=== PATIENT | male | born 1955 | race Caucasian/White ===

== ENCOUNTER 2018-10-25 11:34 | Emergency (ER) | payer MEDICARE, BC ==
[~2018-10-25 11:34] MED LIST: Ondansetron 4 MG/2 ML SDV ONE
[2018-10-25] MEDS ORDERED: Aspirin 81 MG Tab.Chew PO ONE (11:43)
[2018-10-25] MEDS ORDERED: Sodium Chloride 0.9% 1,000 ML IV ONE (11:44)
[2018-10-25] MEDS ORDERED: Ondansetron 4 MG/2 ML SDV IVPUSH STA (11:45)
[2018-10-25] MEDS: Nitroglycerin 0.4 MG Tab.SL SL PRN ×3 (11:48→12:05)
[2018-10-25 12:10] LABS: CHLORIDE,CL 103 mEq/L (98-106); SODIUM,NA 140 mEq/L (136-145)
[2018-10-25] MEDS ORDERED: Iopamidol 755 Mg/ML 100 ML Bottle IVPUSH ONE (12:19)
--- NOTE | 2018-10-25 12:35 | EDM.PDOC ---
ED HPI GENERAL MEDICAL PROBLEM - General Chief Complaint: General Stated Complaint: lightheaded Time Seen by Provider: 10/25/18 11:34 Source of Information: Reports: Patient History Limitations: Reports: No Limitations - History of Present Illness INITIAL COMMENTS - FREE TEXT/NARRATIVE: This patient is a 62 year old male that presents to the ER. Patient reports that he was at home and was doing laundry. He reports that when he bent down that he became lightheaded and passed out to the floor. He reports that his girlfriend found him and called 911. Patient reports his girlfriend was there at the house and it was brief him passing out. Patient reports that he does have chest tightness in center of the chest. Patient reports that he also has more shortness of breath than usual. He reports he has nausea. Patient arrives diaphoretic. Patient reports he has a history of asthma and COPD. Patient also has history of previous alcohol, none lately per patient, HTN, Diabetic. Nonsmoker. Onset: Today Onset Date: 10/25/18 Onset Time: 11:00 Quality: Reports: Other ("tightness") Severity: Mild Improves with: Reports: None Worsens with: Reports: None Associated Symptoms: Reports: Chest Pain, Diaphoresis, Nausea/Vomiting, Shortness of Breath, Syncope, Weakness (generally). Denies: Confusion, Cough, cough w sputum, Fever/Chills, Headaches, Loss of Appetite, Malaise, Rash, Seizure Chest Pain Score (Numeric/FACES): 1 - Related Data Allergies Allergy/AdvReac Type Severity Reaction Status Date / Time No Known Allergies Allergy Verified 10/25/18 11:52 Home Meds: Home Meds Atenolol 25 mg PO DAILY 01/17/14 [History] Benazepril/Hydrochlorothiazide [Benazepril-HCTZ 20-12.5 MG] 1 tab PO DAILY 01/17 [History] Levothyroxine Sodium [Synthroid] 125 mcg PO DAILY 01/17/14 [History] metFORMIN HCl [Metformin HCl ER] 1,000 mg PO BID 01/17/14 [History] Acetaminophen/HYDROcodone [HYDROcodone-Acetaminophen 5-500] 1 mg PO Q4H PRN [History] Gabapentin 300 mg PO BID 06/03/14 [History] Cyanocobalamin (Vitamin B12) [Cyanocobalamin] 1,000 mcg IM Q30D 08/18/14 [ History] Ibuprofen [Advil] 200 mg PO Q6H PRN 08/18/14 [History] Insuln Asp Prot/Insulin Aspart [NovoLOG Mix 70-30] 40 units SQ BEDTIME 10/25/18 [History] Insuln Asp Prot/Insulin Aspart [NovoLOG Mix 70-30] 80 units SQ DAILY 10/25/18 [ History] Tamsulosin HCl [Flomax] 0.4 mg PO BEDTIME 10/25/18 [History] Past Medical History Cardiovascular History: Reports: Heart Failure, Hypertension Respiratory History: Reports: Asthma, COPD, Sleep Apnea Other Respiratory History: WEARS A C[facility]PAP AT [facility] Musculoskeletal History: Reports: Back Pain, Chronic Endocrine/Metabolic History: Reports: Diabetes, Type II, Hypothyroidism, Obesity /BMI 30+ Hematologic History: Reports: B12 Deficiency - Past Surgical History HEENT Surgical History: Reports: Other (See Below) Other HEENT Surgeries/Procedures: eye injections foe leaking blood vessel Cardiovascular Surgical History: Reports: Other (See Below) Other Cardiovascular Surgeries/Procedures: heart catheterization Neurological Surgical History: Reports: Laminectomy Other Neurological Surgeries/Procedures: DONE BACK IN 1999; SURGERY ON THE C-5/C -6 Social & Family History - Family History Family Medical History: Noncontributory - Tobacco Use Smoking Status *Q: Never Smoker - Caffeine Use Caffeine Use: Reports: None - Recreational Drug Use Recreational Drug Use: No ED ROS GENERAL - Review of Systems Review Of Systems: See Below Constitutional: Reports: Weakness (generally) HEENT: Reports: No Symptoms Respiratory: Reports: Shortness of Breath Cardiovascular: Reports: Chest Pain, Lightheadedness, Syncope Endocrine: Reports: No Symptoms GI/Abdominal: Reports: Nausea. Denies: Abdominal Pain, Diarrhea, Vomiting : Reports: No Symptoms Musculoskeletal: Reports: Back Pain Skin: Reports: No Symptoms Neurological: Reports: Dizziness, Syncope Psychiatric: Reports: No Symptoms Hematologic/Lymphatic: Reports: No Symptoms Immunologic: Reports: No Symptoms ED EXAM, GENERAL - Physical Exam Exam: See Below Exam Limited By: No Limitations General Appearance: Alert, WD/WN, Mild Distress, Obese Eye Exam: Bilateral Eye: EOMI, Normal Inspection, PERRL Ears: Normal External Exam, Normal Canal, Hearing Grossly Normal, Normal TMs Ear Exam: Bilateral Ear: Auricle Normal, Canal Normal, TM normal Nose: Normal Inspection, Normal Mucosa, No Blood Throat/Mouth: Normal Inspection, Normal Lips, Normal Teeth, Normal Gums, Normal Oropharynx, Normal Voice, No Airway Compromise Head: Atraumatic, Normocephalic Neck: Normal Inspection, Supple, Non-Tender, Full Range of Motion Respiratory/Chest: Rhonchi, Wheezing (mildly throughout). No: Decreased Breath Sounds, Crackles, Rales, Stridor, Accessory Muscle Use, Retractions, Splinting Cardiovascular: Normal Peripheral Pulses, No Edema, No JVD, Bradycardia (56), Irregularly Irregular Peripheral Pulses: 2+: Carotid (L), Carotid (R), Radial (L), Radial (R), Posterior Tibial (L), Posterior Tibial (R), Dorsalis Pedis (L), Dorsalis Pedis ( R) GI/Abdominal: Normal Bowel Sounds, Soft, Non-Tender, No Distention, No Abnormal Bruit, No Mass, Pelvis Stable, Other (Obese) (Male) Exam: Deferred Rectal (Males) Exam: Deferred Back Exam: Normal Inspection, Full Range of Motion, Paraspinal Tenderness ( thoracic, lumbar. ). No: CVA Tenderness (L), CVA Tenderness (R), Decreased Range of Motion, Muscle Spasm, Vertebral Tenderness Extremities: Normal Inspection, Normal Range of Motion, Non-Tender, No Pedal Edema, Normal Capillary Refill Neurological: Alert, Oriented, CN II-XII Intact, Normal Cognition, No Motor/ Sensory Deficits Psychiatric: Normal Affect, Normal Mood Skin Exam: Warm, Normal Color, No Rash, Diaphoretic Lymphatic: No Adenopathy EKG INTERPRETATION EKG Date: 10/25/18 Time: 11:39 Rhythm: A-Fib Rate (Beats/Min): 60 Comparison: Change From Previous EKG (10/02/18) Course - Vital Signs Last Recorded V/S: Last Vital Signs Temp 98.1 F 10/25/18 13:38 Pulse 54 L 10/25/18 13:38 Resp 20 10/25/18 13:38 BP 135/66 10/25/18 13:38 Pulse Ox 92 L 10/25/18 13:38 - Orders/Labs/Meds Orders: Active Orders 24 hr Category Date Time Status RT Aerosol Therapy [RC] ASDIRECTED Care 10/25/18 12:55 Active Ang Chest [CT] Stat Exams 10/25/18 12:16 Taken Chest 2V [CR] Stat Exams 10/25/18 11:43 Taken Head wo Cont [CT] Stat Exams 10/25/18 11:44 Taken Labs: Laboratory Tests 10/25/18 10/25/18 10/25/18 Range/Units 11:45 11:45 11:45 WBC 7.5 (5.0-10.0) 10^3/uL RBC 5.27 (4.50-6.00) 10^6/uL Hgb 16.5 (14.0-18.0) g/dL Hct 48.9 (40.0-54.0) % MCV 92.8 (82.0-94.0) fL MCH 31.3 (27.0-32.0) pg MCHC 33.7 (33.0-38.0) g/dL RDW Coeff of Isaac 14.1 (11.0-15.0) % Plt Count 166 (150-400) 10^3/uL Neut % (Auto) 69.9 (35-85) % Lymph % (Auto) 18.8 (10-55) % Johnson % (Auto) 9.0 (0-16) % Eos % (Auto) 2.0 (0-5) % Baso % (Auto) 0.3 (0-3) % Neut # (Auto) 5.27 (1.80-7.00) 10^3/uL Lymph # (Auto) 1.42 (1.00-4.80) 10^3/uL Johnson # (Auto) 0.68 (0.00-0.80) 10^3/uL Eos # (Auto) 0.15 (0.00-0.45) 10^3/uL Baso # (Auto) 0.02 10^3/uL PT (9.7-12.3) SEC INR (0.92-1.18) D-Dimer, Quantitative 0.92 H (0.00-0.50) Sodium 140 (136-145) mEq/L Potassium 3.6 (3.5-5.0) mEq/L Chloride 103 (98-106) mEq/L Carbon Dioxide 29 (21-32) mmol/L BUN 13 (7-18) mg/dL Creatinine 0.9 (0.7-1.3) mg/dL Est Cr Clr Drug Dosing 93.41 mL/min Estimated GFR (MDRD) > 60 (>=60) mL/min Glucose 130 H (75-99) mg/dL Calcium 9.0 (8.4-10.1) mg/dL Total Bilirubin 0.4 (0.0-1.0) mg/dL AST 19 (15-37) U/L ALT 19 (12-78) U/L Alkaline Phosphatase 75 (46-116) U/L Lactate Dehydrogenase 188 (100-190) U/L Creatine Kinase 136 (35-232) U/L Troponin I < 0.017 (0.00-0.06) ng/mL Total Protein 7.5 (6.4-8.2) g/dL Albumin 3.6 (3.4-5.0) g/dL 10/25/18 Range/Units 11:45 WBC (5.0-10.0) 10^3/uL RBC (4.50-6.00) 10^6/uL Hgb (14.0-18.0) g/dL Hct (40.0-54.0) % MCV (82.0-94.0) fL MCH (27.0-32.0) pg MCHC (33.0-38.0) g/dL RDW Coeff of Isaac (11.0-15.0) % Plt Count (150-400) 10^3/uL Neut % (Auto) (35-85) % Lymph % (Auto) (10-55) % Johnson % (Auto) (0-16) % Eos % (Auto) (0-5) % Baso % (Auto) (0-3) % Neut # (Auto) (1.80-7.00) 10^3/uL Lymph # (Auto) (1.00-4.80) 10^3/uL Johnson # (Auto) (0.00-0.80) 10^3/uL Eos # (Auto) (0.00-0.45) 10^3/uL Baso # (Auto) 10^3/uL PT 10.3 (9.7-12.3) SEC INR 1.00 (0.92-1.18) D-Dimer, Quantitative (0.00-0.50) Sodium (136-145) mEq/L Potassium (3.5-5.0) mEq/L Chloride (98-106) mEq/L Carbon Dioxide (21-32) mmol/L BUN (7-18) mg/dL Creatinine (0.7-1.3) mg/dL Est Cr Clr Drug Dosing mL/min Estimated GFR (MDRD) (>=60) mL/min Glucose (75-99) mg/dL Calcium (8.4-10.1) mg/dL Total Bilirubin (0.0-1.0) mg/dL AST (15-37) U/L ALT (12-78) U/L Alkaline Phosphatase (46-116) U/L Lactate Dehydrogenase (100-190) U/L Creatine Kinase (35-232) U/L Troponin I (0.00-0.06) ng/mL Total Protein (6.4-8.2) g/dL Albumin (3.4-5.0) g/dL Meds: Medications Discontinued Medications Generic Name Dose Route Start Last Admin Trade Name Freq PRN Reason Stop Dose Admin Albuterol/Ipratropium 3 ml 10/25/18 12:55 10/25/18 13:00 Duoneb 3.0-0.5 Mg/3 Ml NEB 10/25/18 12:56 3 ml ONETIME ONE Administration Aspirin 324 mg 10/25/18 11:43 10/25/18 11:51 Aspirin PO 10/25/18 11:44 324 mg ONETIME ONE Administration Al Hydroxide/Mg Hydroxide 30 0 ml 10/25/18 13:10 10/25/18 13:26 ml/ Lidocaine HCl 15 ml PO 10/25/18 13:11 45 ml ONETIME ONE Administration Sodium Chloride 1,000 mls @ 1,000 mls/hr 10/25/18 11:44 10/25/18 11:51 Normal Saline IV 10/25/18 12:43 1,000 mls/hr .BOLUS ONE Administration Iopamidol 100 ml 10/25/18 12:19 10/25/18 13:15 Isovue-370 (76%) IVPUSH 10/25/18 12:20 100 ml ONETIME ONE Administration Morphine Sulfate 5 mg 10/25/18 12:54 10/25/18 13:00 Morphine IVPUSH 10/25/18 12:55 5 mg ONETIME ONE Administration Nitroglycerin 0.4 mg 10/25/18 11:45 10/25/18 12:05 Nitrostat SL 0.4 mg Q5M PRN Administration Chest Pain Ondansetron HCl 4 mg 10/25/18 11:45 10/25/18 11:51 Zofran IVPUSH 10/25/18 11:46 4 mg NOW STA Administration Ondansetron HCl Confirm 10/25/18 11:34 10/25/18 11:52 Zofran Administered 10/25/18 11:35 Not Given Dose 4 mg .R[facility]TE .[facility] - Radiology Interpretation Free Text/Narrative:: Radiologist read Angio Chest: Radiologist Called: No PE Head CT: no bleed CXR: No infiltrate or acute process CT Results Date: 10/25/18 CT Results Time: 13:10 - Re-Assessments/Exams Free Text/Narrative Re-Assessment/Exam: 10/25/18 1230 Patient hypoxia, chest tightness, short of breath. Have ordered an angio of the chest. Ordered breathing tx, oxygen saturation is 83% RA. Patient placed on 3L NC. 10/25/18 1300 I called and spoke to Jessica for EKG assistance. They recommend heparin push and gtt. I was informed by quick service technician that the contrast dye did not get to where it should. 10/25/18 1305 I called and spoke to Dr. Berry Wolf hospitalist to transfer the patient. Right arm BP is 149/71, 131/67 and angio of the chest does not signify AAA per hospitalist. The chest also shows no PE per hospitalist. At this time, the hospitalist would like us to hold on heparin and give a GI cocktail. 10/25/18 13:17 Patient reports his tightness is chest is unchanged after nitro. After morphine and breathing treatment, tightness in chest has resolved, prior to GI Cocktail. 10/25/18 13:41 Patient reports he is feeling good. Reports lightheadedness, chest tightness and shortness of breath have improved. Patient oxygen saturation is now 95% on 3L NC. Departure - Departure Time of Disposition: 13:17 Disposition: DC/Tfer to [facility] 02 Condition: Poor Clinical Impression: Bradycardia with 51-60 beats per minute, Hypoxia Afib Qualifiers: Atrial fibrillation type: unspecified Qualified Code(s): I48.91 - Unspecified atrial fibrillation Dyspnea Qualifiers: Dyspnea type: shortness of breath Qualified Code(s): R06.02 - Shortness of breath Syncope Qualifiers: Syncope type: unspecified Qualified Code(s): R55 - Syncope and collapse Chest pain Qualifiers: Chest pain type: unspecified Qualified Code(s): R07.9 - Chest pain, unspecified - Discharge Information *PRESCRIPTION DRUG MONITORING PROGRAM REVIEWED*: Not Applicable *COPY OF PRESCRIPTION DRUG MONITORING REPORT IN PATIENT JAMEEL: Not Applicable Forms: ED Department Discharge - My Orders Last 24 Hours: My Active Orders 10/25/18 11:43 Chest 2V [CR] Stat 10/25/18 11:44 Head wo Cont [CT] Stat 10/25/18 12:16 Ang Chest [CT] Stat 10/25/18 12:55 RT Aerosol Therapy [RC] ASDIRECTED - Assessment/Plan Last 24 Hours: My Active Orders 10/25/18 11:43 Chest 2V [CR] Stat 10/25/18 11:44 Head wo Cont [CT] Stat 10/25/18 12:16 Ang Chest [CT] Stat 10/25/18 12:55 RT Aerosol Therapy [RC] ASDIRECTED Plan: PLEASE SEE RN NOTE FOR PFSH. Patient is being transferred to [facility]. Patient is explained benefits and risks of the transfer and understands and accepts. Risk of the transfer are mvc, , cardiac arrest, respiratory distress, respiratory arrest, [place], stroke. The risks of staying in [place] are no personalized living manager, no rn midwife , no cardiac interventions. The benefits of [facility] are higher level of care, personalized living manager, rn midwife, cardiac intervention if needed. The benefits of staying in [place] is close to home.
[2018-10-25] MEDS ORDERED: Morphine 10 MG/ML Syringe IVPUSH ONE (12:54)
[2018-10-25] MEDS ORDERED: Albuterol/Ipratropium 3.0-0.5 MG/3 ML Neb Soln NEB ONE (12:55)
[2018-10-25] MEDS ORDERED: Alum Hydrox/Mag Hydrox/Simeth 30 ML, Lidocaine 2% 15 ML PO ONE ×2 (13:10)
[2018-10-25 13:40] VITALS: BP 135/66; PULSE 54
== END 2018-10-25 14:00 ==
LOC: CC.ED 11:34
DX: I48.91 Unspecified atrial fibrillation (principal); R00.1 Bradycardia, unspecified; R06.02 Shortness of breath; R09.02 Hypoxemia; R55 Syncope and collapse; I11.0 Hypertensive heart disease with heart failure; I50.9 Heart failure, unspecified; E11.9 Type 2 diabetes mellitus without complications; E03.9 Hypothyroidism, unspecified; Z79.4 Long term (current) use of insulin; Z79.899 Other long term (current) drug therapy
CPT/HCPCS: 36415; 70450; 71046; 71275; 80053; 82550; 83615; 84484; 85025; 85379; 85610; 93005; 94640; 96361; 96374; 96375; 99285; A9270; J2270; J2405; J7030; Q9967; 93010; J7620-GY

== ENCOUNTER 2019-01-08 04:44 | Emergency (ER) | payer MEDICARE, BC ==
[2019-01-08 04:52] VITALS: BP 147/70; PULSE 82
[2019-01-08] MEDS: Ketorolac 60 MG/2 ML SDV IM ONE (05:38)
--- NOTE | 2019-01-08 05:41 | EDM.PDOC ---
ED HPI GENERAL MEDICAL PROBLEM - General Chief Complaint: Upper Extremity Injury/Pain Stated Complaint: right wrist/arm pain Time Seen by Provider: 01/08/19 05:15 Source of Information: Reports: Patient History Limitations: Reports: No Limitations - History of Present Illness INITIAL COMMENTS - FREE TEXT/NARRATIVE: Patient presents with right wrist pain for the last 3 days. States is having increased pain with any movement. Is able to open and close fingers but does cause discomfort, but much worse if tries to move wrist. No injury. Notes mild swelling. No redness. No deformity. States wrist feels warm. Onset: Gradual Duration: Day(s): Location: Reports: Upper Extremity, Right Quality: Reports: Burning, Throbbing Severity: Severe Improves with: Reports: Medication, Rest Worsens with: Reports: Movement Treatments CREDIT PRODUCT ANALYST: Reports: Acetaminophen, Other Medication(s) Other Treatments CREDIT PRODUCT ANALYST: hydrocodone Right Lower Hand Pain Score (Numeric/FACES): 10 - Related Data Allergies Allergy/AdvReac Type Severity Reaction Status Date / Time No Known Allergies Allergy Verified 01/08/19 04:53 Home Meds: Home Meds Benazepril/Hydrochlorothiazide [Benazepril-HCTZ 20-12.5 MG] 1 tab PO DAILY 01/17 [History] Levothyroxine Sodium [Synthroid] 125 mcg PO DAILY 01/17/14 [History] metFORMIN HCl [Metformin HCl ER] 1,000 mg PO BID 01/17/14 [History] Acetaminophen/HYDROcodone [HYDROcodone-Acetaminophen 5-500] 1 mg PO Q4H PRN [History] Gabapentin 300 mg PO TID 06/03/14 [History] Cyanocobalamin (Vitamin B12) [Cyanocobalamin] 1,000 mcg IM Q30D 08/18/14 [ History] Insuln Asp Prot/Insulin Aspart [NovoLOG Mix 70-30] 40 units SQ BEDTIME 10/25/18 [History] Insuln Asp Prot/Insulin Aspart [NovoLOG Mix 70-30] 80 units SQ DAILY 10/25/18 [ History] Tamsulosin HCl [Flomax] 0.4 mg PO BEDTIME 10/25/18 [History] Bumetanide 1 mg PO DAILY 01/08/19 [History] Iron 18 mg PO DAILY 01/08/19 [History] Multivitamin [Daily Lopez] 1 each PO DAILY 01/08/19 [History] Rivaroxaban [Xarelto] 20 mg PO DAILY 01/08/19 [History] atorvaSTATin [Lipitor] 10 mg PO DAILY 01/08/19 [History] Past Medical History HEENT History: Reports: Cataract Other HEENT History: right eye cataracts surgery and lens replacement Cardiovascular History: Reports: Afib, Heart Failure, Hypertension Respiratory History: Reports: Asthma, Sleep Apnea Other Respiratory History: WEARS A C-PAP AT [facility] Musculoskeletal History: Reports: Back Pain, Chronic, Neck Pain, Chronic Other Musculoskeletal History: C5 surgery Endocrine/Metabolic History: Reports: Diabetes, Type II, Hypothyroidism, Obesity /BMI 30+ Hematologic History: Reports: Anticoagulation Therapy, B12 Deficiency Dermatologic History: Reports: Eczema - Infectious Disease History Infectious Disease History: Reports: Shingles - Past Surgical History HEENT Surgical History: Reports: Cataract Surgery, Other (See Below) Other HEENT Surgeries/Procedures: eye injections foe leaking blood vessel Cardiovascular Surgical History: Reports: Other (See Below) Other Cardiovascular Surgeries/Procedures: heart catheterization Endocrine Surgical History: Reports: None Neurological Surgical History: Reports: Laminectomy Other Neurological Surgeries/Procedures: DONE BACK IN 1999; SURGERY ON THE C-5/C -6 Musculoskeletal Surgical History: Reports: None Social & Family History - Family History Family Medical History: Noncontributory - Tobacco Use Smoking Status *Q: Never Smoker - Caffeine Use Caffeine Use: Reports: Coffee - Recreational Drug Use Recreational Drug Use: No Review of Systems - Review of Systems Review Of Systems: See Below Constitutional: Denies: Fever, Weakness Eyes: Reports: No Symptoms Ears: Reports: No Symptoms Nose: Reports: No Symptoms Mouth/Throat: Reports: No Symptoms Respiratory: Denies: Shortness of Breath, Cough Cardiovascular: Denies: Chest Pain GI/Abdominal: Reports: No Symptoms Musculoskeletal: Reports: Arm Pain, Joint Pain Skin: Reports: Other (swelling to wrist). Denies: Erythema Neurological: Reports: No Symptoms Psychiatric: Reports: No Symptoms ED EXAM, GENERAL - Physical Exam Exam: See Below Exam Limited By: No Limitations General Appearance: Alert, WD/WN, Mild Distress Respiratory/Chest: No Respiratory Distress, Lungs Clear, Normal Breath Sounds Cardiovascular: Irregularly Irregular Extremities: Joint Swelling (mild medial joint swelling. Tender to entire wrist. Limited range of motion due to pain. No redness or warmth noted. ) Neurological: Alert, Oriented Skin Exam: Warm, Dry Course - Vital Signs Last Recorded V/S: Last Vital Signs Temp 98.9 F 01/08/19 04:47 Pulse 82 01/08/19 04:47 Resp 18 01/08/19 04:47 BP 147/70 H 01/08/19 04:47 Pulse Ox 92 L 01/08/19 04:47 - Orders/Labs/Meds Orders: Active Orders 24 hr Category Date Time Status Wrist Comp Min 3V Rt [CR] Stat Exams 01/08/19 05:13 Taken Meds: Medications Discontinued Medications Generic Name Dose Route Start Last Admin Trade Name Shilo PRN Reason Stop Dose Admin Ketorolac Tromethamine 60 mg 01/08/19 05:25 01/08/19 05:38 Toradol IM 01/08/19 05:26 60 mg ONETIME ONE Administration - Re-Assessments/Exams Free Text/Narrative Re-Assessment/Exam: 01/08/19 xrays negative. As patient is due for other labs at 0830 this am, discussed obtaining those now as well as further work up for gout, arthropathy, etc. He would like to wait until that appointment this am with Dr. Oneal and will obtain all of them. I will discuss patient complaint with Dr. Oneal as well this am. Toradol injection given for pain. Departure - Departure Time of Disposition: 05:40 Disposition: Home, Self-Care 01 Condition: Good Clinical Impression: Wrist pain, acute - Discharge Information *PRESCRIPTION DRUG MONITORING PROGRAM REVIEWED*: No *COPY OF PRESCRIPTION DRUG MONITORING REPORT IN PATIENT JAMEEL: No Referrals: Murtaza Oneal MD [Primary Care Provider] - Forms: ED Department Discharge Additional Instructions: 1. Rest 2. Bates as needed for pain 3. Will obtain additional labs for gout, arthropathy with lab draw this am for appointment 4. Address any persisting concerns with Dr. Oneal at appointment today - My Orders Last 24 Hours: My Active Orders 01/08/19 05:13 Wrist Comp Min 3V Rt [CR] Stat - Assessment/Plan Last 24 Hours: My Active Orders 01/08/19 05:13 Wrist Comp Min 3V Rt [CR] Stat
== END 2019-01-08 05:44 | disposition home or self-care (01) ==
LOC: CC.ED 04:44
DX: M25.531 Pain in right wrist (principal); H26.9 Unspecified cataract; I48.91 Unspecified atrial fibrillation; I10 Essential (primary) hypertension; J45.909 Unspecified asthma, uncomplicated; G47.30 Sleep apnea, unspecified; E11.9 Type 2 diabetes mellitus without complications; E03.9 Hypothyroidism, unspecified; E66.9 Obesity, unspecified; Z68.42 Body mass index [BMI] 45.0-49.9, adult; Z79.890 Hormone replacement therapy; Z79.4 Long term (current) use of insulin; Z79.01 Long term (current) use of anticoagulants; Z79.899 Other long term (current) drug therapy
CPT/HCPCS: 73110-RT; 96372; 99283-25; J1885

== ENCOUNTER 2020-04-16 10:40 | Emergency (ER) | payer MEDICARE, BC ==
[2020-04-16 10:47] VITALS: BP 153/82; PULSE 87
[2020-04-16] MEDS ORDERED: Orphenadrine 60 MG/2 ML Inj IM ONE (11:25)
[2020-04-16] MEDS ORDERED: Ketorolac 60 MG/2 ML SDV IM ONE (11:25)
--- NOTE | 2020-04-16 11:33 | EDM.PDOC ---
ED HPI GENERAL MEDICAL PROBLEM - General Chief Complaint: Back Pain or Injury Stated Complaint: back pain Time Seen by Provider: 04/16/20 11:05 Source of Information: Reports: Patient History Limitations: Reports: No Limitations - History of Present Illness INITIAL COMMENTS - FREE TEXT/NARRATIVE: Jj is a 64 year old male who presents to the ER with mid to low back pain. Mostly concentrated to the middle thoracic region. He was in [place] this am at the hotel and slipped on the ice when leaving. Was supposed to go to a in . but he didn't feel he was able to so he drove back to [place]. Did not hit his head or lose consciousness. Was able to drive back without any difficulty except was very stiff and sore when he got out of the vehicle. He also twisted his right knee and has discomfort with weight bearing. Relates when he fell he heard a "crack". No loss of bowel or bladder. No pain that radiates down his legs. Onset: Today Duration: Hour(s):, Constant Location: Reports: Back Quality: Reports: Ache, Sharp Severity: Severe Improves with: Reports: Rest Worsens with: Reports: Movement Context: Reports: Trauma Associated Symptoms: Reports: No Other Symptoms Middle Back Pain Score (Numeric/FACES): 9 - Related Data Allergies Allergy/AdvReac Type Severity Reaction Status Date / Time No Known Allergies Allergy Verified 04/16/20 10:51 Home Meds: Home Meds Benazepril/Hydrochlorothiazide [Benazepril-HCTZ 20-12.5 MG] 20 mg PO DAILY 01/17/14 [History] Levothyroxine Sodium [Synthroid] 137 mcg PO DAILY 01/17/14 [History] Gabapentin 600 mg PO BID 06/03/14 [History] Cyanocobalamin (Vitamin B12) [Cyanocobalamin] 1,000 mcg IM Q30D 08/18/14 [History] Tamsulosin HCl [Flomax] 0.4 mg PO BEDTIME 10/25/18 [History] Bumetanide 1 mg PO DAILY 01/08/19 [History] Iron 18 mg PO ASDIRECTED 01/08/19 [History] Multivitamin [Daily Lopez] 1 each PO DAILY 01/08/19 [History] Rivaroxaban [Xarelto] 20 mg PO DAILY 01/08/19 [History] atorvaSTATin [Lipitor] 10 mg PO DAILY 01/08/19 [History] Clopidogrel Bisulfate [Plavix] 75 mg PO DAILY 05/01/19 [History] Insuln Asp Prot/Insulin Aspart [NovoLOG Mix 70-30] 35 units SUBCUT BEDTIME 05/01/19 [History] Insuln Asp Prot/Insulin Aspart [NovoLOG Mix 70-30] 70 units SUBCUT ACBREAKFAST 05/01/19 [History] Ketoconazole [Nizoral 2% Crm] 1 each TOP ASDIRECTED PRN 05/01/19 [History] Nitroglycerin 0.4 mg SL ASDIRECTED 05/01/19 [History] allopurinoL [Zyloprim] 300 mg PO DAILY 05/01/19 [History] metFORMIN HCl [Metformin HCl] 1,000 mg PO BID 05/01/19 [History] Past Medical History HEENT History: Reports: Cataract Other HEENT History: right eye cataracts surgery and lens replacement Cardiovascular History: Reports: Afib, Heart Failure, High Cholesterol, Hypertension Other Cardiovascular History: reports having SOB for years, had angiogram in 2017--blockage according to medical records, to treat medically; Said he passed out at home in 2019, so went for lungs and cardiac workup and now has stents; he saw Dr. Oneal last week; had PTCA stents 04-21-19; has h/0 paroxysmal Afib; says he has neuropathy in feet, says he has some ankle edema at times. 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, says he has gout, denies COPD Respiratory History: Reports: Asthma, Sleep Apnea Other Respiratory History: WEARS A C-PAP AT [facility] Genitourinary History: Reports: BPH Musculoskeletal History: Reports: Back Pain, Chronic, Neck Pain, Chronic Other Musculoskeletal History: C5 surgery Endocrine/Metabolic History: Reports: Diabetes, Type II, Hypothyroidism, Obesity/BMI 30+ Hematologic History: Reports: Anticoagulation Therapy, B12 Deficiency Dermatologic History: Reports: Eczema, Seborrheic Dermatitis - Infectious Disease History Infectious Disease History: Reports: Shingles - Past Surgical History HEENT Surgical History: Reports: Cataract Surgery, Other (See Below) Other HEENT Surgeries/Procedures: eye injections foe leaking blood vessel Cardiovascular Surgical History: Reports: Carotid Stents, Other (See Below) Other Cardiovascular Surgeries/Procedures: heart catheterization Endocrine Surgical History: Reports: None Neurological Surgical History: Reports: Laminectomy Other Neurological Surgeries/Procedures: DONE BACK IN 1999; SURGERY ON THE C-5/C-6 Musculoskeletal Surgical History: Reports: None Other Musculoskeletal Surgeries/Procedures:: has some musculoskeletal complaints, former navas, says he is disabled due to back problems Social & Family History - Family History Family Medical History: No Pertinent Family History - Tobacco Use Tobacco Use Status *Q: Never Tobacco User - Caffeine Use Caffeine Use: Reports: Coffee ED ROS GENERAL - Review of Systems Review Of Systems: See Below Constitutional: Denies: Fever, Chills, Malaise, Weakness, Fatigue HEENT: Reports: No Symptoms Respiratory: Denies: Shortness of Breath Cardiovascular: Denies: Chest Pain Endocrine: Denies: Fatigue GI/Abdominal: Denies: Abdominal Pain, Nausea, Vomiting Musculoskeletal: Reports: Back Pain, Joint Pain Skin: Reports: No Symptoms Neurological: Reports: No Symptoms Psychiatric: Reports: No Symptoms ED EXAM,LOWER BACK PAIN/INJURY - Physical Exam Exam: See Below Exam Limited By: No Limitations General Appearance: Alert, WD/WN, No Apparent Distress Ears: Normal External Exam, Normal TMs Nose: Normal Inspection, Normal Mucosa, No Blood Throat/Mouth: Normal Inspection, Normal Oropharynx Head: Normocephalic Neck: Normal Inspection, Supple, Non-Tender Respiratory/Chest: No Respiratory Distress, Lungs Clear, Normal Breath Sounds Cardiovascular: Regular Rate, Rhythm GI/Abdominal: Normal Bowel Sounds, Soft, Non-Tender Back Exam: Normal Inspection, Full Range of Motion, Vertebral Tenderness (middle thoracic spine is tender. No bruising or swelling. ) Extremities: Other (No obvious deformity in knee. Good flexion and extension.) Neurological: Alert Course - Vital Signs Last Recorded V/S: Last Vital Signs Temp 99.2 F 04/16/20 10:42 Pulse 87 04/16/20 10:42 Resp 16 04/16/20 10:42 BP 153/82 H 04/16/20 10:42 Pulse Ox 98 04/16/20 10:42 - Orders/Labs/Meds Orders: Active Orders 24 hr Category Date Time Status Knee 1V or 2V Rt [CR] Stat Exams 04/16/20 11:06 Ordered Thoracolumbar 2V [CR] Stat Exams 04/16/20 11:05 Ordered Meds: Medications Discontinued Medications Generic Name Dose Route Start Last Admin Trade Name Freq PRN Reason Stop Dose Admin Ketorolac Tromethamine 60 mg 04/16/20 11:25 Toradol IM 04/16/20 11:26 ONETIME ONE Orphenadrine Citrate 60 mg 04/16/20 11:25 Norflex IM 04/16/20 11:26 ONETIME ONE - Re-Assessments/Exams Free Text/Narrative Re-Assessment/Exam: 04/16/20 11:32 Xrays do not show any obvious fracture or deformity Departure - Departure Time of Disposition: 11:33 Disposition: Home, Self-Care 01 Condition: Good Clinical Impression: Back pain due to injury Knee pain Qualifiers: Chronicity: acute Laterality: right Qualified Code(s): M25.561 - Pain in right knee - Discharge Information *PRESCRIPTION DRUG MONITORING PROGRAM REVIEWED*: No *COPY OF PRESCRIPTION DRUG MONITORING REPORT IN PATIENT JAMEEL: No Instructions: Acute Knee Pain, Adult, Acute Back Pain, Adult Referrals: Murtaza Oneal MD [Primary Care Provider] - Additional Instructions: 1. Ice to back, may alternate with heat tomorrow 2. Rest 3. Flexeril 10 mg every 8 hours as needed for muscle spasms 4. [place] 5/325 one every 6 hours for pain 5. May see Dr. Duarte on Saturday 6. If pain persists, may need to consider MRI for further evaluation Sepsis Event Note (ED) - Evaluation Sepsis Screening Result: No Definite Risk - Focused Exam Vital Signs: Vital Signs Temp Pulse Resp BP Pulse Ox 04/16/20 10:42 99.2 F 87 16 153/82 H 98 - My Orders Last 24 Hours: My Active Orders 04/16/20 11:05 Thoracolumbar 2V [CR] Stat 04/16/20 11:06 Knee 1V or 2V Rt [CR] Stat - Assessment/Plan Last 24 Hours: My Active Orders 04/16/20 11:05 Thoracolumbar 2V [CR] Stat 04/16/20 11:06 Knee 1V or 2V Rt [CR] Stat
== END 2020-04-16 11:50 | disposition home or self-care (01) ==
LOC: CC.ED 10:40
DX: S39.92XA Unspecified injury of lower back, initial encounter (principal); M25.561 Pain in right knee; I48.91 Unspecified atrial fibrillation; E78.00 Pure hypercholesterolemia, unspecified; I11.0 Hypertensive heart disease with heart failure; I50.9 Heart failure, unspecified; Z95.5 Presence of coronary angioplasty implant and graft; E11.40 Type 2 diabetes mellitus with diabetic neuropathy, unspecified; N40.0 Benign prostatic hyperplasia without lower urinary tract symptoms; E03.9 Hypothyroidism, unspecified; E66.9 Obesity, unspecified; Z68.42 Body mass index [BMI] 45.0-49.9, adult; Z79.4 Long term (current) use of insulin; Z79.02 Long term (current) use of antithrombotics/antiplatelets; Z79.01 Long term (current) use of anticoagulants; Z79.899 Other long term (current) drug therapy; W00.0XXA Fall on same level due to ice and snow, initial encounter
CPT/HCPCS: 72080; 73560-RT; 96372; 99283-25; 99284; J1885; J2360

== ENCOUNTER → 2020-11-18 | Day surgery (SDC) | payer MEDICARE, BC ==
[~2020-11-18] MED LIST changes: +Ketamine 200 MG/20 ML MDV ONE; +Lactated Ringers 1,000 ML IV SCH; -Ondansetron 4 MG/2 ML SDV ONE; +Propofol 200 MG/20 ML SDV ONE; +fentaNYL 100 MCG/2 ML SDV ONE
[2020-11-18 09:35] VITALS: BP 144/79; PULSE 88
--- NOTE | 2020-11-18 09:40 | OR ---
DATE OF OPERATION: 11/18/2020 PREOPERATIVE DIAGNOSIS: HISTORY OF POLYPS. POSTOPERATIVE DIAGNOSIS: HISTORY OF POLYPS. SURGEON: Murtaza Oneal MD PROCEDURE: FULL-LENGTH COLONOSCOPY WITH SNARE POLYPECTOMY X5. ANESTHESIA: MAC. COMPLICATIONS: None. SPECIMEN: Five right-sided tubular adenomas, all less than 0.5 cm. FINDINGS: 1. Full-length surveillance endoscopy. 2. Tubular adenomas x5. RECOMMENDATIONS: Followup colonoscopy in 5 years. INDICATIONS: The patient has a prior history of polyps removed in the past. He is due for a 5-year followup scope. DESCRIPTION OF PROCEDURE: The patient was prepped and draped, placed in the left lateral decubitus position. A lubricated Olympus colonoscope was inserted and easily advanced to the cecum. The bowel prep was adequate. There was a lot of stool in the left colon, but most of this was suctionable. Upon withdrawal, cecum appeared benign. In the proximal ascending colon, the patient had two small 4 mm tubular adenomas, each removed with a snare and suctioned into polyp trap #1. There was a third small tubular adenoma, approximately 3 mm in the mid ascending colon that was removed with a snare and suctioned into polyp trap #2. There were two again at the hepatic flexure, each between 3 and 4 mm, each removed with a snare and suctioned into polyp trap #3 without any difficulty. The rest of the transverse and descending colons were unremarkable. The sigmoid and rectosigmoid areas were without polyp, mass, ulceration, or bleeding sites. There were no signs of any vascular abnormalities or signs of colitis. The rectal vault was benign. Retroflexion of the scope in the rectum showed no anal lesions. Air was suctioned, scope removed without complication. BLAZE/WILL /[id number]
== END ==
LOC: CC.SDS 07:24
PROVIDERS: ATTEND Family Medicine
DX: Z12.11 Encounter for screening for malignant neoplasm of colon (principal); D12.2 Benign neoplasm of ascending colon; D12.3 Benign neoplasm of transverse colon; I48.91 Unspecified atrial fibrillation; N40.1 Benign prostatic hyperplasia with lower urinary tract symptoms; R35.1 Nocturia; E53.8 Deficiency of other specified B group vitamins; I10 Essential (primary) hypertension; E03.9 Hypothyroidism, unspecified; D50.9 Iron deficiency anemia, unspecified; G47.30 Sleep apnea, unspecified; E11.9 Type 2 diabetes mellitus without complications; Z79.82 Long term (current) use of aspirin; Z79.899 Other long term (current) drug therapy; Z79.890 Hormone replacement therapy; Z79.4 Long term (current) use of insulin; Z98.890 Other specified postprocedural states
CPT/HCPCS: 00812; 45385; 88305; J2704; J3010; J7120

== ENCOUNTER 2020-12-31 13:10 | Emergency (ER) | payer MEDICARE, BC ==
[2020-12-31 13:13] VITALS: BP 136/75; PULSE 81
--- NOTE | 2020-12-31 14:20 | EDM.PDOC ---
ED HPI GENERAL MEDICAL PROBLEM - General Chief Complaint: ENT Problem Stated Complaint: nose bleed Time Seen by Provider: 12/31/20 13:31 Source of Information: Reports: Patient History Limitations: Reports: No Limitations - History of Present Illness INITIAL COMMENTS - FREE TEXT/NARRATIVE: Jj is a 65 yo male who presents to the ED with concerns of a right nosebleed. He states he is on Xarelto for atrial fibrillation. Has history of nose bleeds. Admits this one started around 9:30 this morning. Does use CPAP without the humidifier on. States he initially did get it to stop and pulled out the packing about 2 hours later and admits it started again. Did repack it and now hasn't been bleeding on arrival. Treatments LAMP SHADE SEWER: Reports: Dressing(s) - Related Data Allergies Allergy/AdvReac Type Severity Reaction Status Date / Time No Known Allergies Allergy Verified 11/18/20 07:35 Home Meds: Home Meds Levothyroxine Sodium [Synthroid] 137 mcg PO DAILY 01/17/14 [History] Gabapentin 600 mg PO BID 06/03/14 [History] Cyanocobalamin (Vitamin B12) [Cyanocobalamin] 1,000 mcg IM Q30D 08/18/14 [History] Tamsulosin HCl [Flomax] 0.4 mg PO BEDTIME 10/25/18 [History] Bumetanide 1 mg PO DAILY 01/08/19 [History] Multivitamin [Daily Lopez] 1 each PO DAILY 01/08/19 [History] Rivaroxaban [Xarelto] 20 mg PO DAILY 01/08/19 [History] Insuln Asp Prot/Insulin Aspart [NovoLOG Mix 70-30] 35 units SUBCUT BEDTIME 05/01/19 [History] Insuln Asp Prot/Insulin Aspart [NovoLOG Mix 70-30] 70 units SUBCUT ACBREAKFAST 05/01/19 [History] Ketoconazole [Nizoral 2% Crm] 1 applic TOP ASDIRECTED PRN 05/01/19 [History] Nitroglycerin 0.4 mg SL ASDIRECTED PRN 05/01/19 [History] allopurinoL [Zyloprim] 300 mg PO DAILY 05/01/19 [History] metFORMIN HCl [Metformin HCl] 1,000 mg PO BID 05/01/19 [History] Aspirin [Aspirin EC] 81 mg PO DAILY 11/17/20 [History] Benazepril HCl 20 mg PO DAILY 11/17/20 [History] Ferrous Sulfate [Iron] 325 mg PO DAILY 11/17/20 [History] atorvaSTATin Calcium [Atorvastatin Calcium] 40 mg PO DAILY 11/17/20 [History] Past Medical History HEENT History: Reports: Cataract Other HEENT History: right eye cataracts surgery and lens replacement Cardiovascular History: Reports: Afib, Heart Failure, High Cholesterol, Hypertension Other Cardiovascular History: reports having SOB for years, had angiogram in 2017--blockage according to medical records, to treat medically; Said he passed out at home in 2019, so went for lungs and cardiac workup and now has stents; he saw Dr. Oenal last week; had PTCA stents 04-21-19; has h/0 paroxysmal Afib; says he has neuropathy in feet, says he has some ankle edema at times. 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, says he has gout, denies COPD Respiratory History: Reports: Asthma, Sleep Apnea Other Respiratory History: WEARS A C-PAP AT [facility] Genitourinary History: Reports: BPH Musculoskeletal History: Reports: Back Pain, Chronic, Neck Pain, Chronic Other Musculoskeletal History: C5 surgery Endocrine/Metabolic History: Reports: Diabetes, Type II, Hypothyroidism, Obesity/BMI 30+ Hematologic History: Reports: Anticoagulation Therapy, B12 Deficiency Dermatologic History: Reports: Eczema, Seborrheic Dermatitis - Infectious Disease History Infectious Disease History: Reports: Shingles - Past Surgical History HEENT Surgical History: Reports: Cataract Surgery, Other (See Below) Other HEENT Surgeries/Procedures: eye injections foe leaking blood vessel Cardiovascular Surgical History: Reports: Carotid Stents, Other (See Below) Other Cardiovascular Surgeries/Procedures: heart catheterization Endocrine Surgical History: Reports: None Neurological Surgical History: Reports: Laminectomy Other Neurological Surgeries/Procedures: DONE BACK IN 1999; SURGERY ON THE C-5/C-6 Musculoskeletal Surgical History: Reports: None Other Musculoskeletal Surgeries/Procedures:: has some musculoskeletal complaints, former navas, says he is disabled due to back problems Social & Family History - Family History Family Medical History: No Pertinent Family History - Tobacco Use Tobacco Use Status *Q: Never Tobacco User - Caffeine Use Caffeine Use: Reports: None - Recreational Drug Use Recreational Drug Use: No ED ROS ENT - Review of Systems Review Of Systems: See Below HEENT: Reports: Nosebleed Respiratory: Reports: No Symptoms Cardiovascular: Reports: Blood Pressure Problem GI/Abdominal: Reports: No Symptoms : Reports: No Symptoms Musculoskeletal: Reports: No Symptoms Skin: Reports: No Symptoms Neurological: Reports: No Symptoms Hematologic/Lymphatic: Reports: Easy Bleeding (Xarelto) ED EXAM, ENT - Physical Exam Exam: See Below Exam Limited By: No Limitations General Appearance: Alert, No Apparent Distress Ears: Normal External Exam, Hearing Grossly Normal Nose: Dried Blood. No: Nasal Tenderness, Active Bleeding Mouth/Throat: Other (no bleed posterior pharynx). No: Pharyngeal Erythema Head: Atraumatic, Normocephalic Neck: Normal Inspection Neurological: Alert, Oriented, Normal Cognition Psychiatric: Normal Affect, Normal Mood Skin: Warm, Dry, Intact, Normal Color Course - Vital Signs Last Recorded V/S: Last Vital Signs Temp 97.6 F 12/31/20 13:10 Pulse 81 12/31/20 13:10 Resp 18 12/31/20 13:10 BP 136/75 12/31/20 13:10 Pulse Ox 91 L 12/31/20 13:10 Departure - Departure Time of Disposition: 14:21 Disposition: Home, Self-Care 01 Clinical Impression: Right-sided nosebleed - Discharge Information Instructions: Nosebleed, Adult, [id number] Forms: ED Department Discharge Additional Instructions: 1) Bleeding appears to have subsided 2) Recommend leaving packing in until this evening 3) When you remove it, use saline syringe to moisten packing to help with removal 4) May apply triple antibiotic ointment via qtip to keep anterior nare moist 5) If bleeding resumes and unable to stop, recommend returning to ED. 6) Check blood pressure and if continues to be elevated follow up with primary on Saturday. Sepsis Event Note (ED) - Focused Exam Vital Signs: Vital Signs Temp Pulse Resp BP Pulse Ox 12/31/20 13:10 97.6 F 81 18 136/75 91 L - Problem List & Annotations (1) Right-sided nosebleed SNOMED Code(s): 120421386 Code(s): R04.0 - EPISTAXIS Status: Acute Current Visit: Yes - Assessment/Plan Plan: Bleeding stopped prior to arrival. Will plan for discharge. Discussed removing packing, evaluating and possible cauterizing, which he would like to wait on. Will leave packing in place at this time. Will monitor and if resumes will return for reevaluation. We monitored Jj for about an hour and no further bleeding noted.
== END 2020-12-31 15:00 | disposition home or self-care (01) ==
LOC: CC.ED 13:10
DX: R04.0 Epistaxis (principal); I11.0 Hypertensive heart disease with heart failure; I50.9 Heart failure, unspecified; I48.91 Unspecified atrial fibrillation; E03.9 Hypothyroidism, unspecified; E11.9 Type 2 diabetes mellitus without complications; E66.9 Obesity, unspecified; Z68.42 Body mass index [BMI] 45.0-49.9, adult; Z79.82 Long term (current) use of aspirin; Z79.4 Long term (current) use of insulin; Z79.899 Other long term (current) drug therapy; Z79.01 Long term (current) use of anticoagulants
CPT/HCPCS: 99283

== ENCOUNTER 2023-01-10 07:35 | Emergency (ER) | payer MEDICARE, BC ==
[2023-01-10] MEDS ORDERED: Oxymetazoline 0.05% Nasal Spray 30 ML Bottle NAS ONE (07:47)
[2023-01-10 08:52] VITALS: BP 145/77; PULSE 80
== END 2023-01-10 08:40 | disposition home or self-care (01) ==
LOC: CC.ED 07:35
DX: R04.0 Epistaxis (principal); I48.91 Unspecified atrial fibrillation; I11.0 Hypertensive heart disease with heart failure; I50.9 Heart failure, unspecified; E78.00 Pure hypercholesterolemia, unspecified; J45.909 Unspecified asthma, uncomplicated; E11.9 Type 2 diabetes mellitus without complications; E03.9 Hypothyroidism, unspecified; E66.9 Obesity, unspecified; Z68.43 Body mass index [BMI] 50.0-59.9, adult; Z79.899 Other long term (current) drug therapy; Z79.4 Long term (current) use of insulin; Z79.82 Long term (current) use of aspirin
CPT/HCPCS: 30901; 99283

== ENCOUNTER 2023-04-01 09:45 | Emergency (ER) | payer MEDICARE, BC ==
[2023-04-01] MEDS: Aspirin 81 MG Tab.Chew PO ONE (10:02)
[2023-04-01 10:04] VITALS: BP 141/83; PULSE 102
[2023-04-01 10:10] LABS: BASOPHILS ABSOLUTE AUTO 0.01 10^3/uL (0.00-0.50); BASOPHILS PERCENT AUTO 0.1 % (0-1); EOSINOPHILS ABSOLUTE AUTO 0.06 10^3/uL (0.00-1.50); EOSINOPHILS PERCENT AUTO 0.8 % (0-6); HEMATOCRIT 46.7 % (42.0-52.0); HEMOGLOBIN 15.6 g/dL (14.0-18.0); IMMATURE GRAN ABSOLUTE AUTO 0.01 10^3/uL (0.00-0.49); IMMATURE GRAN PERCENT AUTO 0.1 % (0.0-4.9); LYMPHOCYTES ABSOLUTE AUTO 1.23 10^3/uL (0.60-5.00); LYMPHOCYTES PERCENT AUTO 15.9 % (24-44); MEAN CORPUSCULAR HEMOGLOBIN 31.8 pg (27.0-32.0); MEAN CORPUSCULAR HGB CONC 33.4 g/dL (32.0-36.0); MEAN CORPUSCULAR VOLUME 95.3 fL (83.0-97.0); MONOCYTES ABSOLUTE AUTO 0.59 10^3/uL (0.00-1.50); MONOCYTES PERCENT AUTO 7.6 % (0-10); NEUTROPHILS ABSOLUTE AUTO 5.83 x10^3/uL (1.80-8.00); NEUTROPHILS PERCENT AUTO 75.5 % (41-71); PLATELET COUNT,PLT 175 10^3/uL (150-400); WHITE BLOOD CELL COUNT,WBC 7.7 10^3/uL (4.0-11.0)
[2023-04-01 10:31] LABS: ALBUMIN 3.3 g/dL (3.4-5.0); BILIRUBIN TOTAL 0.5 mg/dL (0.0-1.0); C-REACTIVE PROTEIN 0.67 mg/dL (<=0.50); CALCIUM 9.2 mg/dL (8.4-10.1); EST CRCL DRUG DOSING (CG) 78.68 mL/min; MAGNESIUM 1.5 mg/dL (1.8-2.4); POTASSIUM,K 4.1 mEq/L (3.5-5.0); PROTEIN TOTAL,TP 7.2 g/dL (6.4-8.2)
[2023-04-01 10:46] LABS: CORONAVIRUS COVID-19 NAA NEGATIVE (NEGATIVE); INFLUENZA A NAA NEGATIVE (NEGATIVE); INFLUENZA B NAA NEGATIVE (NEGATIVE)
== END 2023-04-01 13:45 | disposition home or self-care (01) ==
LOC: CC.ED 09:45
DX: R07.89 Other chest pain (principal); I10 Essential (primary) hypertension; J45.909 Unspecified asthma, uncomplicated; E11.9 Type 2 diabetes mellitus without complications; E03.9 Hypothyroidism, unspecified; E66.9 Obesity, unspecified; Z79.4 Long term (current) use of insulin; Z20.822 Contact with and (suspected) exposure to COVID-19; Z79.84 Long term (current) use of oral hypoglycemic drugs; Z79.82 Long term (current) use of aspirin; Z68.42 Body mass index [BMI] 45.0-49.9, adult
CPT/HCPCS: 0240U; 36415; 71045; 80053; 83735; 83880; 84484; 85025; 85379; 85730; 86140; 93005; 93010; 99284; 99285; A9270-GY

== ENCOUNTER 2023-04-06 15:12 | Emergency (ER) | payer MEDICARE, BC ==
[2023-04-06 15:35] LABS: BASOPHILS ABSOLUTE AUTO 0.03 10^3/uL (0.00-0.50); BASOPHILS PERCENT AUTO 0.4 % (0-1); EOSINOPHILS ABSOLUTE AUTO 0.09 10^3/uL (0.00-1.50); EOSINOPHILS PERCENT AUTO 1.1 % (0-6); HEMATOCRIT 44.9 % (42.0-52.0); HEMOGLOBIN 14.9 g/dL (14.0-18.0); IMMATURE GRAN ABSOLUTE AUTO 0.01 10^3/uL (0.00-0.49); IMMATURE GRAN PERCENT AUTO 0.1 % (0.0-4.9); LYMPHOCYTES ABSOLUTE AUTO 1.15 10^3/uL (0.60-5.00); LYMPHOCYTES PERCENT AUTO 14.4 % (24-44); MEAN CORPUSCULAR HEMOGLOBIN 31.9 pg (27.0-32.0); MEAN CORPUSCULAR HGB CONC 33.2 g/dL (32.0-36.0); MEAN CORPUSCULAR VOLUME 96.1 fL (83.0-97.0); MONOCYTES ABSOLUTE AUTO 0.43 10^3/uL (0.00-1.50); MONOCYTES PERCENT AUTO 5.4 % (0-10); NEUTROPHILS ABSOLUTE AUTO 6.28 x10^3/uL (1.80-8.00); NEUTROPHILS PERCENT AUTO 78.6 % (41-71); PLATELET COUNT,PLT 175 10^3/uL (150-400); RED BLOOD CELL COUNT 4.67 x10^6/uL (4.50-6.00)
[2023-04-06 15:51] LABS: ALBUMIN 3.2 g/dL (3.4-5.0); BILIRUBIN TOTAL 0.3 mg/dL (0.0-1.0); C-REACTIVE PROTEIN 0.82 mg/dL (<=0.50); CALCIUM 8.6 mg/dL (8.4-10.1); EST CRCL DRUG DOSING (CG) 74.01 mL/min; POTASSIUM,K 4.3 mEq/L (3.5-5.0); PROTEIN TOTAL,TP 6.9 g/dL (6.4-8.2)
[2023-04-06 17:22] VITALS: BP 147/85; PULSE 92
== END 2023-04-06 16:30 | disposition home or self-care (01) ==
LOC: CC.ED 15:12
DX: R07.9 Chest pain, unspecified (principal); I11.0 Hypertensive heart disease with heart failure; I50.9 Heart failure, unspecified; E78.00 Pure hypercholesterolemia, unspecified; J44.9 Chronic obstructive pulmonary disease, unspecified; E11.9 Type 2 diabetes mellitus without complications; E03.9 Hypothyroidism, unspecified; Z79.82 Long term (current) use of aspirin; Z79.84 Long term (current) use of oral hypoglycemic drugs; Z79.4 Long term (current) use of insulin; E66.9 Obesity, unspecified; Z68.42 Body mass index [BMI] 45.0-49.9, adult; Z20.822 Contact with and (suspected) exposure to COVID-19
CPT/HCPCS: 36415; 71046; 80053; 84484; 85025; 86140; 87804; 93010; 99284; 99285; U0002